=== PATIENT | female | born 1995 | race Caucasian/White ===

== ENCOUNTER 2018-01-20 08:58 | Emergency (ER) | payer BC ==
[~2018-01-20] VITALS: Ht 157.5 cm; Wt 52.0 kg
[2018-01-20 09:02] VITALS: BP 108/66
[2018-01-20] MEDS ORDERED: LIDOcaine Viscous 15ml cup MM ONE (09:10)
[2018-01-20] MEDS ORDERED: LIDO20SO16 PO (09:13)
== END 2018-01-20 09:49 | disposition home or self-care (01) ==
LOC: ER 09:00
DX: J02.9 Acute pharyngitis, unspecified (principal); Z79.899 Other long term (current) drug therapy
CPT/HCPCS: 99283